=== PATIENT | male | born 1995 | race Caucasian/White ===

== ENCOUNTER 2018-02-12 04:03 | Emergency (ER) | payer SELFPAY ==
[~2018-02-12] VITALS: Ht 170.2 cm; Wt 64.5 kg
[2018-02-12] MEDS ORDERED: NEOMY SULF/BACITRAC ZN/POLY OINT 28GM TOP STA (04:36)
[2018-02-12] MEDS ORDERED: TETANUS, DIPHTHERIA, PERTUSSIS VAC/PF 0.5ML (>7YR OLD) IM ONE (04:45)
[2018-02-12] MEDS ORDERED: NEOMYCIN TOP ONE (05:00)
[2018-02-12] MEDS ORDERED: BACITRACIN TOP ONE (05:00)
[2018-02-12] MEDS ORDERED: POLYMYXIN B TOP ONE (05:00)
[2018-02-12 05:14] VITALS: BP 108/79
== END 2018-02-12 05:16 | disposition home or self-care (01) ==
LOC: ER 04:03
DX: T21.21XA Burn of second degree of chest wall, initial encounter (principal); T31.0 Burns involving less than 10% of body surface; X08.8XXA Exposure to other specified smoke, fire and flames, initial encounter; Y93.89 Activity, other specified; Y92.89 Other specified places as the place of occurrence of the external cause; Y99.8 Other external cause status
CPT/HCPCS: 16020; 90471; 90715; 99283; 99284